=== PATIENT | female | born 1975 | race Two or more races ===

== ENCOUNTER → 2017-03-10 | Outpatient (CLI) | payer OTHER ==
[~2017-03-10] VITALS: Ht 165.1 cm; Wt 63.5 kg
[~2017-03-10] MED LIST: IBUP100T10 PO; LIDOCAINE 1%/EPI 1:100,000 20 ML VIAL. INJ ONE
[2017-03-10 09:28] VITALS: BP 126/59
--- NOTE | 2017-03-13 15:03 | PATHOLOGY ---
PATHOLOGY REPORT * * * * * * * * FINAL DIAGNOSIS: A. Breast "right breast mass, needle core biopsy": - Fibrocystic changes with apocrine metaplasia, cyst formation, adenosis. The largest area measures 1.5 cm in greatest dimension without any evidence of atypia or malignancy. - See comment. B. Breast "left breast mass, needle core biopsy": - Fibrocystic changes with apocrine metaplasia, cyst formation, adenosis. The largest area measures 1.0 cm in greatest dimension without any evidence of atypia or malignancy. - See comment. COMMENT: A and B. This case is also reviewed by Dr. Rosetta Dickinson. (SHA:panfilo; d/t: 03/13/2017) REPORT ELECTRONICALLY SIGNED BY: Harley Greer M.D. DATE/TIME: 03/13/2017 15:02 * * * * * * * * GROSS PATHOLOGY: A. Received in formalin labeled "Trish Raymundo, right breast," are multiple needle cores of yellow-sanchez fibrofatty tissue measuring 1.8 x 0.7 x 0.4 cm in aggregate dimensions. The tissue is submitted in its entirety in cassette A1. The cold ischemic time is 2 minutes. The total formalin fixation time is 10 hours and 8 minutes B. Received in formalin labeled "left breast," are multiple needle cores of yellow-sanchez fibrofatty tissue measuring 14.5 x 0.5 x 0.4 cm in aggregate dimensions. The tissue is submitted in its entirety in cassette B1. The cold ischemic time is 2 minutes. The total formalin fixation time is 10 hours and 53 minutes. (JPM; 03/10/17) INITIAL CPT CODE(S): A; 20239 B; 09853 Professional services performed by [facility] at [facility] [address] [place] [address] Technical services performed by [facility] at [address] [place] [address], [address], [place] [address]. SPECIMEN(S) RECEIVED: A.Right breast mass B.Left breast mass CLINICAL HISTORY: Right and left breast masses PATIENT: TRISH RAYMUNDO /AGE: 703/26/1975 (Age: 41) PATIENT #: [id number] ALT CASE #: SPECIMEN COLLECTION DATE: 03/10/2017 SPECIMEN RECEIVED DATE: 03/10/2017 [facility] - [id number] [address] - PHONE: [phone] * * * END OF REPORT * * *
== END | disposition home or self-care (01) ==
LOC: US 08:46
PROVIDERS: ATTEND Surgery
DX: N63 Unspecified lump in breast (principal)
CPT/HCPCS: 19081; 76942; C1713; G0204; 77066